=== PATIENT | female | born 1970 ===

== ENCOUNTER 2019-03-28 22:41 | Emergency (ER) | payer MEDICAID, OTHER ==
[2019-03-28] MEDS ORDERED: Diphtheria,Pertussis(Acell),Tetanus Vaccine 0.5 ML SDV IM ONE (22:55)
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
== END 2019-03-28 23:36 | disposition home or self-care (01) ==
LOC: LL.ED 22:41
DX: T25.221A Burn of second degree of right foot, initial encounter (principal); T31.0 Burns involving less than 10% of body surface; Z23 Encounter for immunization; X10.2XXA Contact with fats and cooking oils, initial encounter; Y99.0 Civilian activity done for income or pay
CPT/HCPCS: 16020; 90471; 90715; 99282; 99283-25